=== PATIENT | male | born 1970 | race Caucasian/White ===

== ENCOUNTER → 2018-08-13 | Emergency (ER) | payer SELFPAY ==
[~2018-08-13] MED LIST: Bacitracin Zinc 1 Packet ONE; Lorazepam 1 MG TAB ONE; Nicotine 14 MG PATCH TOP SCH; traZODone HCl 50 MG TAB ONE
== END ==
LOC: ERS 14:39
DX: F29 Unspecified psychosis not due to a substance or known physiological condition (principal); F17.210 Nicotine dependence, cigarettes, uncomplicated
CPT/HCPCS: 99285